=== PATIENT | female | born 1950 | race Caucasian/White ===

== ENCOUNTER 2020-03-03 07:05 | Outpatient (CLI) | payer MEDICARE, SELFPAY ==
--- NOTE | 2020-03-03 07:08 | ECG_ITS ---
NAME OF STUDY: LEXISCAN SESTAMIBI STRESS TEST INDICATION: [Exertional Chest Pain, NOTE: Please note that this is the electrocardiogram portion of the Lexiscan/Sestamibi stress test. The perfusion scan will be documented separately. DATA: Baseline heart rate was 72 beats per minute. Baseline blood pressure was 188/91 millimeters of mercury. Target heart rate was 153. Maximum heart rate achieved was 100. which was 65 % of the predicted target heart rate. Maximum blood pressure was 202/90 millimeters of mercury. The reason for ending the test was completion of the protocol. The patient did not experience any symptoms. ELECTROCARDIOGRAM: BASELINE: Sinus rhythm. Normal axis. Possible old anteroseptal myocardial infarction. EXERCISE: After Lexiscan injection, no ST-T changes suggestive of ischemic noted. No arrhythmia noted. CONCLUSION: Please note due to baseline abnormality of the EKG specificity and sensitivity of the EKG portion of LexiScan MIBI stress test will be low 1. EKG not suggestive of ischemia 2. Lexiscan injection unremarkable. 3. Perfusion scan will be documented separately. Electronically Signed On 03-03-2020 16:33:32 CDT by Pee Evans M.D. [id number]
--- NOTE | 2020-03-03 07:10 | NMCV_ITS ---
NM valentin perf SPECT r/s* [id number] Lakeshia Giles Age: 69 Gender: F : 1950 Exam Date: 03/03/2020 08:07 Ordering Phys: Derek Angel DO Technologist: ROSMERY Perkins Exam Location: [facility] Indications: Exertional chest pain STRESS TEST Please see separate stress test report in [facility] for full findings IMAGE PROTOCOL Rest/Stress 1 Lexiscan Day Radiopharmaceutical Dose (mCi) Administration Site Administered by Rest: Tc-99m 11.0 IV ROSMERY Johnson Sestamibi Stress:Tc-99m 33.0 IV ROSMERY Perkins Sestamiisrael Rest: 03-Mar-2020 60 Discovery 630 Stress: 03-Mar-2020 45 Discovery 630 0.4mg Lexiscan. Images obtained in supine and prone position. SPECT RESULTS Technical Quality: Good Raw Data Analysis: Breast attenuation Image Corrections: No attenuation or motion correction applied Summed Stress Score: 1 Summed Rest Score: 0 Summed Difference Score: 1 PERFUSION FINDINGS SPECT images demonstrate homogeneous tracer distribution throughout the myocardium. FUNCTIONAL RESULTS (calculated via Gated SPECT) Stress Image LV EF (%): 66 Stress EDV (mL):90 TID: 0.86 Stress ESV (mL):31 FUNCTIONAL FINDINGS: The left ventricle is normal in size. Transient Ischemia Dilatation of 0.86. There is normal left ventricular systolic function. The left ventricular ejection fraction is normal with a value of 66%. There is normal left ventricular wall thickening. Normal end-diastolic and end-systolic volumes. IMPRESSIONS 1. Myocardial perfusion imaging is normal. 2. Overall left ventricular systolic function is normal without regional wall motion abnormalities. 3. The left ventricular ejection fraction is normal with a value of 66%. 4. This study suggests a low likelihood of angiographically significant coronary artery disease. Becki Stroud MD (Electronically Signed) Final Date: 03 March 2020 12:37 S
--- NOTE | 2020-03-03 07:26 | PC.NURSE ---
STRESS TEST NOTE PATIENT COMES IN [place] AND STATES THAT SHE DOESN'T THINK SHE WILL BE ABLE TO WALK ON THE TREADMILL AND THAT SHE TOLD DR PRIDE THAT HER KNEES WOULD NOT ALLOW HER TO. SHE ALSO STATES THAT SHE HAD ASKED DR PRIDE FOR AN ORTHO REFERRAL TO GET BILAT KNEE REPLACEMENTS. NO ANSWER AT [facility] THIS AM. DR ANNA WAS NOTIFIED BY TELEPHONE OF THE ABOVE AND ORDERS WERE RECEIVED TO CHANGE THE TEST TO A LEXISCAN SESTAMIBI STRESS TEST IF THE PATIENT WAS AGREEABLE. THIS WAS EXPLAINED TO THE PATIENT IN FULL AND SHE WISHES TO PROCEED WITH THE CHEMICAL STRESS TEST.
[2020-03-03] MEDS: regadenoson 0.4 Mg/5 ml Syringe IVP (08:49)
[2020-03-03 09:15] VITALS: BP 188/86; PULSE 88
== END 2020-03-03 07:06 | disposition home or self-care (01) ==
LOC: RAD 07:07
PROVIDERS: Family Provider Internal Medicine; PCP Internal Medicine; Visit Provider Internal Medicine
DX: R07.9 Chest pain, unspecified (principal)
CPT/HCPCS: 78452; 93017; A9500; J2785

== ENCOUNTER → 2020-12-01 09:00 | Outpatient (BNVA) | payer MEDICARE, SELFPAY | PROVIDERS: Family Provider Internal Medicine; PCP Internal Medicine; Visit Provider Family Medicine | DX: Z20.822 Contact with and (suspected) exposure to COVID-19 (principal) | CPT/HCPCS: 87635 ==

== ENCOUNTER 2021-05-18 07:52 | Emergency (ER) | payer MEDICARE, SELFPAY ==
[2021-05-18] VITALS (7 sets, daily range): BP systolic 142–214; BP diastolic 65–89; PULSE 51–67; RESP 18–20; TEMP 36.2–37.1; O2SAT 96–100; BMI 41.5
--- NOTE | 2021-05-18 08:04 | ECG_ITS ---
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 Measurements Intervals [place] Rate: 57 P: -25 IN: 163 QRS: -3 QRSD: 97 T: 30 QT: 393 QTc: 383 Interpretive Statements SINUS BRADYCARDIA MODERATE VOLTAGE CRITERIA FOR LVH, CONSIDER NORMAL VARIANT [MEETS CRITERIA IN ONE OF: R(aVL), S(V1), R(V5), R(V5/V6)+S(V1)] Compared to ECG 03/07/2018 20:14:46 Sinus rhythm no longer present Electronically Signed On 05-19-2021 0:18:27 CDT by Luis Gonzalez M.D. [id number]
--- NOTE | 2021-05-18 08:05 | XRR_ITS ---
PROCEDURE INFORMATION: Exam: XR Chest Exam date and time: 05/18/2021 8:05 AM Age: 71 years old Clinical indication: Cough and dyspnea; Patient HX: No chest complaints per patient; Additional info: Dyspnea/cough TECHNIQUE: Imaging protocol: XR of the chest. Views: 1 view. COMPARISON: CR XR chest 2V* [id number] 02/19/2020 9:36 AM FINDINGS: Lungs: Unremarkable. No consolidation. Pleural spaces: Unremarkable. No pleural effusion. No pneumothorax. Heart/Mediastinum: Stable cardiomediastinal silhouette. Bones/joints: Unremarkable. XR/XR chest 1V portable [id number] IMPRESSION: No acute findings.
--- NOTE | 2021-05-18 08:16 | ED_ITS ---
HPI - General Adult General: Chief complaint: General Medical Stated complaint: High BP, pain in R side of face, Diarrhea Time Seen by Provider: 05/18/21 08:04 History of Present Illness: HPI narrative: 71-year-old female presents emergency room with elevated blood pressure. She has not had any recent change in her blood pressure medications. She has not changed dosages or run out of any of her medications says any chest pain or shortness of breath that the right-sided facial numbness/weakness. But no other symptoms not really had any weakness that we can evaluate now. Denies difficulty speech vision or swallowing Onset (ago): day(s) Location: face Radiation: non-radiation Severity: mild Relieving factors: none Exacerbating factors: none Associated symptoms: Deny chest pain, confusion, cough, diaphoresis, decreased appetite, dyspnea, fevers/chills, headache(s), malaise, nausea, rash, palpitations, seizures, short of breath, syncope, vomiting or weakness Treatments prior to arrival: none Review of Systems Const: Denies: malaise or diaphoresis ENMT: Denies: throat pain, ear or mastoid pain, nasal discharge or nasal congestion Card: Denies: chest pain, palpitations or syncope Resp: Denies: dyspnea GI: Denies: nausea or vomiting : Denies: flank pain, difficulty voiding, dysuria, urinary frequency or urinary urgency Skin/Breast: Denies: rash Neuro: Denies: headache(s) or confusion PFS ED PFSH: Social History Smoking and tobacco status: former smoker Quit status (tobacco): quit date established Second hand smoke exposure: No Smoking risk assessment/counseling performed?: No Physical Exam Const: COMMON NORMALS: no acute distress GENERAL APPEARANCE: cooperative and comfortable ORIENTATION/CONSCIOUSNESS: Yes awake, Yes oriented to person, Yes oriented to place and Yes oriented to time HENMT: COMMON NORMALS: normocephalic, atraumatic, hearing grossly normal bilaterally and external ears normal HEAD & SCALP: normocephalic and atraumatic EXTERNAL EAR: Yes external ears normal Neck/C-Spine: COMMON NORMALS: no JVD Resp: COMMON NORMALS: normal respiratory effort, No retractions, No use of accessory muscles and clear to auscultation bilaterally AUSCULTATION: clear to auscultation bilaterally Cardio: COMMON NORMALS: no JVD, regular rate, regular rhythm and No murmurs present (Cardio) RATE: regular rate RHYTHM: regular rhythm GI: COMMON NORMALS: Soft to palpation and No hepatosplenomegaly present AUSCULTATION: Yes normoactive bowel sounds PALPATION: Yes Soft to palpation, No Tenderness to palpation present (GI), No Guarding due to palpation present (GI) and Yes No hepatosplenomegaly present Extremity: COMMON NORMALS: normal to inspection, capillary refill normal, no clubbing, cyanosis or edema, no calf tenderness and no pedal edema Neuro: SENSORIUM/ORIENTATION: Yes oriented to person, Yes oriented to place and Yes oriented to time Skin: COMMON NORMALS: no rashes or lesions noted GENERAL SKIN EXAM: no rashes or lesions noted Course Vital Signs: Vital signs: Vital Signs Temperature 98.8 F 05/18/21 08:06 Pulse Rate 60 05/18/21 08:15 Respiratory Rate 18 05/18/21 08:15 Blood Pressure 188/89 05/18/21 08:15 Pulse Oximetry 97 05/18/21 08:06 Discharge Plan Discharge Prescriptions: No Action atenolol PO RF: 0 diltiazem HCl PO RF: 0 lisinopril PO RF: 0 Coding Level of Care Code ED Cloud Subject Matter Expert for Jennifer Esquivel NIH stroke score NIHSS Level Of Consciousness - 1a: 0 Level Of Consciousness Questions - 1b: Both Correct Level Of Consciousness Commands - 1c: Both Correct Best Gaze - 2: Normal Visual Ware - 3: No Visual Loss Facial Palsy - 4: Normal Motor Arm Right - 5: No Drift Motor Arm Left - 5: No Drift Motor Leg Right - 6: No Drift Motor Leg Left - 6: No Drift Limb Ataxia - 7: Absent Sensory - 8: Mild To Moderate Loss Best Language - 9: No Aphasia Dysarthia - 10: Normal Extinction And Inattention - 11: 0 Score Total Score: 1
--- NOTE | 2021-05-18 08:17 | CT_ITS ---
WS: [id number] CT HEAD TECHNIQUE: Noncontrast CT of the head obtained from the skullbase to the vertex. CLINICAL INFORMATION: Right-sided facial weakness COMPARISON: None. DLP: 895.[address] scans at [facility] use at least one of these dose optimization techniques: automat ed exposure control; mA and/or kV adjustment per patient size (includes targeted exams where dose is matched to clinical indication); or iterative reconstruction. FINDINGS: No evidence of intracranial hemorrhage or mass effect. Ventricular system and basal cisterns are gayle nt. Mild small vessel changes with mild parenchymal volume loss. Chronic lacunar infarct right caudat e. Tiny chronic lacunar infarcts anterior limb left internal capsule. No extra-axial fluid collection s. No evidence of mass or mass effect. Normal brand-white differentiation. Cavernous carotid calcifica tion. Paranasal sinuses and mastoid air cells are well aerated. .Normal visualized soft tissues. CT/CT head wo con* [id number] IMPRESSION: 1. No evidence of intracranial hemorrhage or mass effect. 2. Mild small vessel changes. Mild parenchymal volume loss. 3. Tiny chronic lacunar infarcts right greater than left caudate. 4. No acute intracranial findings. Notified Luis Daniel Schuster DO at 05/18/2021 9:13 AM.
--- NOTE | 2021-05-18 08:19 | PC.NURSE ---
Patient reports that she woke at 0230 with left sided numbness. Also reports dizziness at 0330. A&O x4 with no neuro deficits noted at this time. Denies any pain at this time.
[2021-05-18 08:47] LABS: Basophils # 0.1 10^3/uL (0.0-0.1); Basophils % 0.7 %; Eosinophils # 0.2 10^3/uL (0.0-0.8); Eosinophils % 1.9 %; Hematocrit 41.1 % (37.0-47.0); Lymphocytes # 1.7 10^3/uL (0.8-4.8); Lymphocytes % 19.3 %; Mean Corpuscular HGB Conc 31.6 g/dL (30.0-36.0); Mean Corpuscular Hemoglobin 28.8 pg (28.0-34.0); Mean Corpuscular Volume 91.1 fL (81-99); Mean Platelet Volume 9.3 fL (7.4-10.4); Monocytes # 0.5 10^3/uL (0.2-0.9); Monocytes % 5.8 %; Neutrophils # 6.22 10^3/uL (1.8-7.7); Nucleated Red Blood Cells % 0 %; Platelet Count 335 10^3/cmm (130-400); Red Blood Count 4.51 10^6/uL (4.1-5.3); Red Cell Distribution Width 13.2 % (12.1-15.1); White Blood Count 8.6 10^3/uL (4.0-10.0)
[2021-05-18 09:05] LABS: Add Urine Microscopic? NO; Charge for UA Resulting for Rev
[2021-05-18 09:06] LABS: Alanine Aminotransferase 11 U/L (0-33); Alkaline Phosphatase 97 IU/L (35-105); Anion Gap 15.2 (5-19); Aspartate Amino Transferase 14 U/L (0-32); Blood Urea Nitrogen 8 mg/dL (8-23); Carbon Dioxide 26 mmol/L (22-29); Chloride 102 mmol/L (98-107); Creatine Phosphokinase 60 U/L (26-192); Globulin 2.9 g/dL (1.3-4.6); Glomerular Filtration Rate 122.3 mL/min (90-130); Glucose 140 mg/dL (65-115); Osmolality Calculated 289 mOsm/kg (285-295); Potassium 4.2 mmol/L (3.5-5.1); Sodium 139 mmol/L (136-145); Total Bilirubin 0.4 mg/dL (0.15-1.2); Total Protein 6.9 g/dL (6.6-8.7)
[2021-05-18 09:20] LABS: Bilirubin Urine Neg (Negative); Blood Urine Neg (Negative); Glucose Urine UA Norm (Normal); Ketones Urine Negative (Negative); Leukocyte Esterase Urine Negative (Negative); Nitrate Urine Negative (Negative); Protein Urine Neg (Negative); Specific Gravity, Urine 1.005 (1.005-1.030); Urine Appearance Clear (CLEAR); Urine Color Yellow (Yellow); Urobilinogen Urine Norm (Negative); pH Urine 7 (5-7)
--- NOTE | 2021-05-18 09:40 | PC.NURSE ---
Patient taking home blood pressure medication at this time. Lisinopril, diltiazem, and atenolol.
== END 2021-05-18 11:09 | disposition home or self-care (01) ==
PROVIDERS: Emergency Provider Family Medicine; PCP Internal Medicine
DX: I10 Essential (primary) hypertension (principal); Z87.891 Personal history of nicotine dependence
CPT/HCPCS: 36415; 70450; 71045; 80053; 81003; 82550; 85025; 93005; 99284

== ENCOUNTER 2021-05-27 20:00 | Outpatient (CLI) | payer MEDICARE, SELFPAY | END 2021-05-27 20:01 | disposition home or self-care (01) | LOC: SLEEP 05-28 08:47 | PROVIDERS: PCP Internal Medicine; Visit Provider Internal Medicine | DX: G47.10 Hypersomnia, unspecified (principal); R06.83 Snoring; R53.83 Other fatigue; G47.33 Obstructive sleep apnea (adult) (pediatric) | CPT/HCPCS: 95810 ==

== ENCOUNTER 2021-12-14 13:48 | Outpatient (CLI) | payer MEDICARE, SELFPAY ==
--- NOTE | 2021-12-14 14:00 | USCV_ITS ---
Lakeshia Giles Age: 71 Gender: F : 1950 Exam Date: 12/14/2021 14:37 Ordering Phys: Socorro Sinha INSURANCE PROFESSIONAL INSURANCE PROFESSIONAL Technologist: SAMRA [place] [facility] [facility] Indication: Essential hypertension BP: 182 / 82 HR: 74 Rhythm: Sinus Technical Quality: Adequate MEASUREMENTS (Male / Female) Normal Values 2D ECHO LV Diastolic Diameter PLAX 3.3 cm 4.2 - 5.9 / 3.9 - 5.3 cm LV Systolic Diameter PLAX 2.1 cm IVS Diastolic Thickness 1.3 cm 0.6 - 1.0 / 0.6 - 0.9 cm IVS Systolic Thickness 1.6 cm LVPW Diastolic Thickness 1.6 cm 0.6 - 1.0 / 0.6 - 0.9 cm LVPW Systolic Thickness 1.3 cm LVOT Diameter 2.0 cm LV Ejection Fraction 2D Teich 65.5 % LV Ejection Fraction MOD 2C 70.9 % LV Ejection Fraction 2C AL 74.8 % LA Diameter 3.1 cm LA Width 3.1 cm LA Height 4.8 cm RA Width 3.4 cm RA Height 4.5 cm Aorta at Sinotubular Diameter 2.5 cm M-MODE Aortic Annulus Diameter 3.3 cm LA Ao Ratio MM 0.9 MV E Point Septal Separation 0.6 cm DOPPLER AV Peak Velocity 221.0 cm/s LVOT Peak Velocity 136.0 cm/s AV Area Cont Eq vti 2.0 cm squared AV Area Cont Eq pk 2.0 cm squared MV Area PHT 3.3 cm squared Mitral E to A Ratio 0.7 MV E' Velocity 47.0 cm/s Mitral E to MV E' Ratio 7.0 Mitral E to LV E' Lateral Ratio 5.8 Mitral E to LV E' Septal Ratio 9.1 FINDINGS Left Ventricle Normal left ventricular size, systolic function and wall thickness, with no regional wall motion abnormalities. Left ventricular ejection fraction is estimated at 70 %. Grade I diastolic dysfunction (abnormal relaxation filling pattern), normal to mildly elevated filling pressures. Right Ventricle Normal right ventricular size and systolic function. RVSP could not be calculated due to incomplete tricuspid regurgitation velocity profile. Right Atrium Normal right atrial size. Left Atrium Mildly increased left atrial size. Mitral Valve Mild to moderate mitral annular calcification. No mitral valve stenosis. Trace mitral valve regurgitation. Aortic Valve Probably trileaflet aortic valve. No aortic valve stenosis. No aortic valve regurgitation. Tricuspid Valve Structurally normal tricuspid valve. Trace tricuspid valve regurgitation. Pulmonic Valve Structurally normal pulmonic valve. No pulmonary valve stenosis. No pulmonary valve regurgitation. Pericardium No pericardial effusion. Aorta Normal size aortic root and proximal ascending aorta. CONCLUSIONS 1. Normal left ventricular size, systolic function and wall thickness, with no regional wall motion abnormalities. Left ventricular ejection fraction is estimated at 70 %. Grade I diastolic dysfunction (abnormal relaxation filling pattern), normal to mildly elevated filling pressures. 2. Normal right ventricular size and systolic function. 3. No significant change when compared to previous study dated 07/11/2013. Becki Stroud MD (Electronically Signed) Final Date: 17 December 2021 23:00 S
== END 2021-12-14 13:49 | disposition home or self-care (01) ==
LOC: RAD 13:55
PROVIDERS: PCP Internal Medicine; Visit Provider Nurse Practitioner Family
DX: I10 Essential (primary) hypertension (principal)
CPT/HCPCS: 93306

== ENCOUNTER 2022-06-27 08:57 | Outpatient (CLI) | payer MEDICARE, SELFPAY ==
--- NOTE | 2022-06-27 09:12 | MM_ITS ---
WS: [id number] SCREENING DIGITAL BREAST TOMOSYNTHESIS MAMMOGRAM WITH CAD HISTORY: SCREENING COMPARISON: 02/04/2014 Bilateral CC and MLO with tomosynthesis and synthetic mammography submitted. Computer aided detection analyzed. Breast composition: There are scattered areas of fibroglandular density. There are clustered calcific ations in the anterior RIGHT breast near 9:00. Additional bilateral extensive vascular calcifications . Stable asymmetries within each breast since 2013. MM/[place] [id number] IMPRESSION: BI-RADS: 0-Incomplete: Need additional imaging evaluation FOLLOW UP: Need Additional Imaging RIGHT BREAST: Magnification views of suspicious calcification CC and MLO. True ML.
== END 2022-06-27 08:58 | disposition home or self-care (01) ==
LOC: RAD 08:58
PROVIDERS: PCP Internal Medicine; Visit Provider Internal Medicine
DX: Z12.31 Encounter for screening mammogram for malignant neoplasm of breast (principal)
CPT/HCPCS: 77063; 77067

== ENCOUNTER → 2022-06-28 10:30 | Outpatient (BNVA) | payer MEDICARE, SELFPAY | PROVIDERS: PCP Internal Medicine; Visit Provider Internal Medicine Cardiovascular Disease | DX: I10 Essential (primary) hypertension (principal); G47.33 Obstructive sleep apnea (adult) (pediatric); Z87.891 Personal history of nicotine dependence | CPT/HCPCS: 99213; 99214 ==

== ENCOUNTER 2022-07-20 08:34 | Outpatient (CLI) | payer MEDICARE, SELFPAY ==
--- NOTE | 2022-07-20 08:42 | MM_ITS ---
WS: [id number] ADDITIONAL VIEW RIGHT DIGITAL TOMOSYNTHESIS MAMMOGRAPHY WITH CAD. HISTORY: INCONCLUSIVE MAMMOGRAM COMPARISON: 06/27/2022, 02/04/2014 Technique: ML views. Magnification views RIGHT CC and MLO. Breast composition: There are scattered areas of fibroglandular density. Calcifications are reidenti fied and 9:00 in the middle depth. There are only a few calcifications which are well circumscribed. No spiculation. On the CC projection there are additional superimposed vascular calcifications contri buting to the grouping of calcifications. Ovoid soft tissue nodule central to the nipple and just inf erior to the nipple is stable since 2013. MM/[place] [id number] IMPRESSION: BI-RADS: 3-Probably Benign FOLLOW UP: 6 Month Follow-up Recommend additional magnification views RIGHT breast calcifications in 6 month s. Long-term stability with documentation necessary.
== END 2022-07-20 08:35 | disposition home or self-care (01) ==
PROVIDERS: PCP Internal Medicine; Visit Provider Internal Medicine
DX: R92.2 Inconclusive mammogram (principal); R92.1 Mammographic calcification found on diagnostic imaging of breast
CPT/HCPCS: 77061

== ENCOUNTER 2022-12-08 02:58 | Emergency (ER) | payer MEDICARE, SELFPAY ==
[2022-12-08 02:59] VITALS: BP 206/102; PULSE 101; RESP 12; TEMP 36.4; O2SAT 98; BMI 40.6
--- NOTE | 2022-12-08 02:59 | ECG_ITS ---
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 Measurements Intervals [place] Rate: 89 P: 270 IL: 160 QRS: -13 QRSD: 89 T: 41 QT: 348 QTc: 424 Interpretive Statements SINUS RHYTHM LOW QRS VOLTAGE IN PRECORDIAL LEADS [QRS DEFLECTION < 1.0 mV IN CHEST LEADS] VOLTAGE CRITERIA FOR LVH [MEETS CRITERIA IN ONE OF: R(aVL), S(V1), R(V5), R(V5/V6)+S(V1)] Compared to ECG 05/18/2021 08:15:58 Low QRS voltage now present Electronically Signed On 12-08-2022 14:45:05 MANAGER RESIDENTIAL by Javier Dickens M.D. [id number]
--- NOTE | 2022-12-08 02:59 | XRR_ITS ---
PROCEDURE INFORMATION: Exam: XR Chest Exam date and time: 12/08/2022 3:24 AM Age: 72 years old Clinical indication: Sternal or substernal pain; Patient HX: C/O substernal chest pain. History of heart murmer. ; Additional info: Cp TECHNIQUE: Imaging protocol: Radiologic exam of the chest. Views: 1 view. COMPARISON: CR XR chest 1V portable [id number] 18/05/2021 08:44 FINDINGS: Lungs: Increasing areas of left lung base hazy opacity and right midlung hazy opacity. Pleural spaces: No pneumothorax or effusion. Heart/Mediastinum: The heart is mildly enlarged. Diffuse vascular calcification. Bones/joints: Unremarkable. XR/XR chest 1V portable [id number] IMPRESSION: 1. Increasing areas of bilateral hazy atelectasis, scarring, or pneumonitis from 05/18/2021. Recommend 1-2 month follow-up. 2. The heart remains enlarged. There is perhaps slight venous prominence.
--- NOTE | 2022-12-08 03:13 | ED_ITS ---
HPI - Chest Pain General: Chief Complaint: Chest Pain Stated Complaint: Chest Pain Time Seen by Provider: 12/08/22 03:06 Source: patient Mode of arrival: ambulatory Limitations: no limitations History of Present Illness: 72-year-old female states she been having chest pain since 9 PM last night states been a pressure type pain in her chest has been constant nature states she has been feeling little anxious since having the pain as well. Denies any shortness of breath denies any nausea denies diapho resis denies any worsening improving factors. Associated symptoms: Deny abdominal pain, dyspnea, fever(s), nausea or vomiting Review of Systems Const: Denies: fever(s), chills, body aches or change in appetite Eyes: Denies: blurry vision or eye discomfort ENMT: Denies: throat pain or dental pain Card: Reports: chest pain Resp: Denies: dyspnea GI: Denies: abdominal pain, nausea, vomiting or diarrhea : Denies: dysuria Musc: Denies: neck pain or back pain Skin/Breast: Denies: rash Neuro: Denies: headache(s) Psych: Denies: depression Mingo/Lymph: Denies: easy bruising All/Imm: Denies: urticaria PFSH ED PFSH: Medical History Asthma Former smoker, stopped smoking many years ago Obesity DANIEL (obstructive sleep apnea) Social History Smoking and tobacco status: former smoker Quit status (tobacco): quit date established Second hand smoke exposure: No Smoking risk assessment/counseling performed?: No Physical Exam Const: COMMON NORMALS: no acute distress, patient oriented x3 and healthy appearing HENMT: COMMON NORMALS: normocephalic and atraumatic HEAD & SCALP: normocephalic and atraumatic Eye: COMMON NORMALS: Equal, round and reactive pupils present and EOMs intact bilaterally PUPIL: Yes Equal, round and reactive pupils present Neck/C-Spine: COMMON NORMALS: full ROM and supple Chest: COMMONS NORMALS: normal inspection of the chest and normal palpation of entire chest wall Resp: COMMON NORMALS: normal respiratory effort, No retractions, No use of accessory muscles and clear to auscultation bilaterally AUSCULTATION: clear to auscultation bilaterally Cardio: COMMON NORMALS: regular rate, regular rhythm and No murmurs present (Cardio) RATE: regular rate RHYTHM: regular rhythm GI: COMMON NORMALS: Normal to inspection, nondistended, normoactive bowel sounds present, Soft to palpation, non-tender and no masses PALPATION: Yes Soft to palpation Extremity: COMMON NORMALS: normal to inspection and full ROM Neuro: COMMON NORMALS: patient oriented x3, moves all extremities and no focal motor deficits Psych: COMMON NORMALS: mental status grossly normal, Normal thought process present and cooperative THOUGHT PROCESS: Normal thought process present Skin: COMMON NORMALS: no rashes or lesions noted and no wounds GENERAL SKIN EXAM: no rashes or lesions noted Course Vital Signs: Vital signs: Vital Signs Temperature 97.5 F L 12/08/22 02:59 Pulse Rate 101 H 12/08/22 02:59 Respiratory Rate 12 12/08/22 02:59 Blood Pressure 206/102 12/08/22 02:59 Pulse Oximetry 98 12/08/22 02:59 Oxygen Delivery Me thod 12/08/22 02:59 MDM - Chest Pain Medical Decision Making Patient presents here with chest pain its resolved here currently her initial repeat troponin are normal her EKGs are normal as well has no signs of acute coronary syndrome she has no signs of aortic dissection or pulmonary embolism she is stable for discharge at this time she is to follow-up with her acute care physician in 3 to 5 days she is to return if worsening she understands agrees to plan. Lab Data 12/08/22 03:25 12/08/22 03:25 Radiology Impressions Chest X-Ray 12/08/22 02:59 IMPRESSION: 1. Increasing areas of bilateral hazy atelectasis, scarring, or pneumonitis from 05/18/2021. Recommend 1-2 month follow-up. 2. The heart remains enlarged. There is perhaps slight venous prominence. Laboratory Results WBC 9.6 10^3/uL (4.0-10.0) 12/08/22 03:25 RBC 4.70 10^6/uL (4.1-5.3) 12/08/22 03:25 Hgb 13.6 g/dL (11.5-15.3) 12/08/22 03:25 Hct 43.3 % (37.0-47.0) 12/08/22 03:25 MCV 92.1 fl (81-99) 12/08/22 03:25 MCH 28.9 pg (28.0-34.0) 12/08/22 03:25 MCHC 31.4 g/dL (30.0-36.0) 12/08/22 03:25 RDW 13.5 % (12.1-15.1) 12/08/22 03:25 Plt Count 360 10^3/cmm (130-400) 12/08/22 03:25 MPV 9.2 fL (7.4-10.4) 12/08/22 03:25 Neut % (Auto) 74.2 % 12/08/22 03:25 Lymph % (Auto) 16.9 % 12/08/22 03:25 [place] % (Auto) 5.7 % 12/08/22 03:25 Eos % (Auto) 2.3 % 12/08/22 03:25 Baso % (Auto) 0.6 % 12/08/22 03:25 Neut # (Auto) 7.09 10^3/uL (1.8-7.7) 12/08/22 03:25 Lymph # (Auto) 1.6 10^3/uL (0.8-4.8) 12/08/22 03:25 [place] # (Auto) 0.5 10^3/uL (0.2-0.9) 12/08/22 03:25 Eos # (Auto) 0.2 10^3/uL (0.0-0.8) 12/08/22 03:25 Baso # (Auto) 0.1 10^3/uL (0.0-0.1) 12/08/22 03:25 Nucleated RBC % (auto) 0 % 12/08/22 03:25 Nucleated RBCs # 0.0 /100WBC 12/08/22 03:25 PT 12.30 SECONDS (12.1-14.9) 12/08/22 03:25 INR 0.88 (0.8-1.2) 12/08/22 03:25 Sodium 138 mmol/L (136-145) 12/08/22 03:25 Potassium 4.1 mmol/L (3.5-5.1) 12/08/22 03:25 Chloride 102 mmol/L (98-107) 12/08/22 03:25 Carbon Dioxide 23 mmol/L (22-29) 12/08/22 03:25 Anion Gap 17.1 (5-19) 12/08/22 03:25 BUN 14 mg/dL (8-23) 12/08/22 03:25 Creatinine 0.6 mg/dL (0.5-0.9) 12/08/22 03:25 GFR Calculation 98.8 mL/min (90-130) 12/08/22 03:25 Glucose 158 mg/dL (65-115) H 12/08/22 03:25 Calculated Osmolality 290 mOsm/kg (285-295) 12/08/22 03:25 Calcium 9.9 mg/dL (8.5-10.5) 12/08/22 03:25 Total Bilirubin 0.2 mg/dL (0.15-1.2) 12/08/22 03:25 AST 14 U/L (0-32) 12/08/22 03:25 ALT 12 U/L (0-33) 12/08/22 03:25 Alkaline Phosphatase 141 U/L (35-105) H 12/08/22 03:25 Troponin T Baseline 7 ng/L (0-10) 12/08/22 03:25 Troponin T 120 Minute 6.35 ng/L (0-10) 12/08/22 04:53 Total Protein 7.8 g/dL (6.6-8.7) 12/08/22 03:25 Albumin 4.5 g/dL (3.5-5.2) 12/08/22 03:25 Globulin 3.3 g/dL (1.3-4.6) 12/08/22 03:25 Lipase 17 U/L (13-60) 12/08/22 04:53 EKG Data EKG 1: I personally reviewed and interpreted this EKG as follows: EKG interpretation date: 12/08/22 EKG interpretation time: 04:54 Interpretation: nsr hr [address] or t wave abnormalities qrs 84 qtc 400 Discharge Plan Discharge Patient Disposition: Home Clinical Impression: Chest pain Condition: Stable Prescriptions: New Protonix 40 mg tablet,delayed release (DR/EC) 40 mg PO DAILY Qty: 60 0RF No Action aspirin 81 mg tablet,delayed release (DR/EC) 325 mg PO DAILY diltiazem HCl 180 mg capsule,ext.rel 24h degradable 180 mg PO BID Qty: 180 2RF clonidine HCl 0.1 mg tablet 0.1 mg PO BID PRN (Reason: Blood Pressure) Qty: 60 2RF Rx Instructions: Use if BP > 160/90 mm Hg Discharge Orders: Discharge ED (Routine); Ordered 12/08/22 Ordered By: Christoph Engel Referrals: Becki Stroud MD [Physician] - 1-3 days Derek Angel DO [Primary Care Provider] - Discharge Diet: Advance as tolerated Discharge Activity: Resume usual activity Patient Instructions: Chest Pain (ED) Coding Level of Care Code ED Precision Optics Technician for Chg Fwd Exam Comprehensive
[2022-12-08 03:32] LABS: Basophils # 0.1 10^3/uL (0.0-0.1); Basophils % 0.6 %; Eosinophils # 0.2 10^3/uL (0.0-0.8); Eosinophils % 2.3 %; Hematocrit 43.3 % (37.0-47.0); Hemoglobin 13.6 g/dL (11.5-15.3); Lymphocytes # 1.6 10^3/uL (0.8-4.8); Lymphocytes % 16.9 %; Mean Corpuscular HGB Conc 31.4 g/dL (30.0-36.0); Mean Corpuscular Hemoglobin 28.9 pg (28.0-34.0); Mean Corpuscular Volume 92.1 fl (81-99); Mean Platelet Volume 9.2 fL (7.4-10.4); Monocytes # 0.5 10^3/uL (0.2-0.9); Monocytes % 5.7 %; Neutrophils # 7.09 10^3/uL (1.8-7.7); Neutrophils % 74.2 %; Nucleated Red Blood Cells % 0 %; Platelet Count 360 10^3/cmm (130-400); Red Cell Distribution Width 13.5 % (12.1-15.1); White Blood Count 9.6 10^3/uL (4.0-10.0)
[2022-12-08] MEDS: nitroglycerin 0.4 mg sublingual Tablet SUBLINGUAL (03:33)
[2022-12-08 03:43] LABS: INR 0.88 (0.8-1.2)
[2022-12-08 03:52] LABS: Alanine Aminotransferase 12 U/L (0-33); Albumin Level 4.5 g/dL (3.5-5.2); Alkaline Phosphatase 141 U/L (35-105); Anion Gap 17.1 (5-19); Aspartate Amino Transferase 14 U/L (0-32); Blood Urea Nitrogen 14 mg/dL (8-23); Calcium 9.9 mg/dL (8.5-10.5); Carbon Dioxide 23 mmol/L (22-29); Chloride 102 mmol/L (98-107); Globulin 3.3 g/dL (1.3-4.6); Glomerular Filtration Rate 98.8 mL/min (90-130); Glucose 158 mg/dL (65-115); Osmolality Calculated 290 mOsm/kg (285-295); Potassium 4.1 mmol/L (3.5-5.1); Sodium 138 mmol/L (136-145); Total Bilirubin 0.2 mg/dL (0.15-1.2); Total Protein 7.8 g/dL (6.6-8.7)
[2022-12-08] MEDS: hyDRALAzine 20 mg/mL INJ 1 mL 10 MG IVP (03:52)
[2022-12-08 03:53] LABS: Troponin(5th) Baseline 7 ng/L (0-10)
[2022-12-08 04:00] VITALS: BP 180/83; PULSE 85; RESP 18; O2SAT 99
[2022-12-08] MEDS: ondansetron 2 mg/ML SDV 2 mL 4 MG IVP ×2 (04:03→05:12)
[2022-12-08] MEDS: ketorolac 30 mg/mL INJ 15 MG IVP (04:45)
--- NOTE | 2022-12-08 04:54 | ECG_ITS ---
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 Measurements Intervals Call Rate: 66 P: 48 SD: 227 QRS: -14 QRSD: 84 T: 29 QT: 387 QTc: 405 Interpretive Statements SINUS RHYTHM WITH FIRST DEGREE AV BLOCK LOW QRS VOLTAGE IN PRECORDIAL LEADS [QRS DEFLECTION < 1.0 mV IN CHEST LEADS] MODERATE VOLTAGE CRITERIA FOR LVH, CONSIDER NORMAL VARIANT [MEETS CRITERIA IN ONE OF: R(aVL), S(V1), R(V5), R(V5/V6)+S(V1)] POSSIBLE ANTERIOR MYOCARDIAL INFARCTION , PROBABLY OLD [30 ms Q WAVE IN V3/V4, OR R < 0.2 mV IN V4] Compared to ECG 12/08/2022 03:16:05 First degree AV block now present Myocardial infarct finding now present Ectopic atrial rhythm no longer present Electronically Signed On 12-08-2022 14:50:28 ASPHALT DAUBER by Javier Dickens M.D. [id number]
[2022-12-08 05:05] VITALS: BP 149/73; PULSE 73; RESP 18; O2SAT 94
[2022-12-08] MEDS: lidocaine 2% viscous 15 ML, aluminum-mag hydrox-simethicon 30 ML, sucralfate oral liq 1 GM PO (05:12)
[2022-12-08 05:19] LABS: Lipase 17 U/L (13-60)
[2022-12-08 05:23] LABS: Troponin 5 2HR 6.35 ng/L (0-10)
[2022-12-08 06:55] LABS: Troponin 5 2HR Delta -0.65 ABS# (0-10)
--- NOTE | 2022-12-08 10:05 | DCPLANNER ---
Addendum entered by Adela Laws 12/23/22 13:33: Patient had a follow up appointment scheduled at [facility] - patient did attend appointment. Addendum entered by Adela Laws 12/08/22 15:34: Patient has a follow up appointment scheduled for Tuesday, December 13, 2022 at 10:00 with Marjan Tillman at [facility]. Clinic will call patient with appointment information. Original Note: research and development manager had message to schedule a follow up appointment for patient with cardiology. research and development manager sent patients information to the front office staff at [facility]. Patients information will be printed and reviewed. Clinic will call patient with appointment information.
== END 2022-12-08 06:08 | disposition home or self-care (01) ==
PROVIDERS: Emergency Provider Emergency Medicine; PCP Internal Medicine
DX: R07.9 Chest pain, unspecified (principal); Z79.82 Long term (current) use of aspirin; Z87.891 Personal history of nicotine dependence
CPT/HCPCS: 71045; 80053; 83690; 84484; 85025; 85610; 93005; 96374; 96375; 96376; 99285; J0360; J1885; J2405

== ENCOUNTER → 2022-12-13 09:51 | Outpatient (BNVA) | payer MEDICARE, SELFPAY | PROVIDERS: PCP Internal Medicine; Visit Provider Nurse Practitioner Family | DX: R07.9 Chest pain, unspecified (principal); I10 Essential (primary) hypertension; Z87.891 Personal history of nicotine dependence | CPT/HCPCS: 99214 ==

== ENCOUNTER → 2023-01-17 08:39 | Outpatient (BNVA) | payer MEDICARE, SELFPAY | PROVIDERS: PCP Internal Medicine; Visit Provider Nurse Practitioner Family | DX: I10 Essential (primary) hypertension (principal); Z87.891 Personal history of nicotine dependence; Z79.82 Long term (current) use of aspirin | CPT/HCPCS: 99213 ==

== ENCOUNTER 2023-02-06 12:53 | Outpatient (CLI) | payer MEDICARE, SELFPAY ==
--- NOTE | 2023-02-06 13:11 | MM_ITS ---
WS: [id number] Right breast diagnostic 3D tomosynthesis digital mammogram, 02/06/2023 Clinical Data: 6[facility] CALCS Comparison: 07/20/2022, 06/27/2022, 02/04/2014, 02/26/2009, 01/20/2009, 01/10/2007. Findings: The small calcifications in the midportion of the right breast at the 9:00 position have not changed in size or number. Most likely these calcifications represent a small degenerating fibroadenoma. Ther e are vascular calcifications present. The parenchymal pattern shows fibroglandular tissue. MM/[place] [id number] Impression: 1. Unchanging small calcifications in central portion right breast. 2. Recommend return to annual screening mammograms. BIRADS: 2-Benign FOLLOW UP: 1 Year Follow-up The CAD title checker was used.
== END 2023-02-06 12:54 | disposition home or self-care (01) ==
LOC: RAD 12:58
PROVIDERS: PCP Internal Medicine; Visit Provider Internal Medicine
DX: R92.8 Other abnormal and inconclusive findings on diagnostic imaging of breast (principal); R92.1 Mammographic calcification found on diagnostic imaging of breast
CPT/HCPCS: 77061; G0279

== ENCOUNTER 2023-05-23 07:31 | Emergency (ER) | payer MEDICARE, SELFPAY ==
[2023-05-23 07:38] VITALS: BP 252/106; PULSE 83; RESP 16; TEMP 36.8; O2SAT 96; BMI 43.9
--- NOTE | 2023-05-23 07:39 | W.ED.EXTPRO ---
HPI - Extremity Problem General: Chief complaint: Extremity Problem,Nontraumatic Stated complaint: rt arm pain/numbness Time Seen by Provider: 05/23/23 07:36 Source: patient Mode of arrival: ambulatory History of Present Illness: 73-year-old female presents emergency room complaining of right arm and shoulder pain. She had a fall years ago intermittently had pain in that arm no recent trauma. Symptoms have come and gone over time its gotten worse lately she had difficult time with function but she has difficult time raising the arm. No other injuries or complaints at this time. Blood pressure is markedly elevated when she first arrived she took a clonidine 0.1 mg that she had at home shortly after arrival. MD Complaint: joint pain Pain Consistency: intermittent Location: right Quality: sharp Radiation: none Associated symptoms: Deny chest pain, fever(s) or rash Review of Systems Const: Denies: fever(s) ENMT: Denies: throat pain, ear or mastoid pain, nasal discharge or nasal congestion Card: Denies: chest pain, edema, dyspnea on exertion or orthopnea Resp: Denies: dyspnea, productive cough or non-productive cough GI: Denies: abdominal pain, nausea, vomiting, hematemesis, coffee ground emesis, diarrhea, constipation, bloating, hematochezia or melena : Denies: flank pain, difficulty voiding, dysuria, urinary frequency or urinary urgency Skin/Breast: Denies: rash or pruritus PFSH ED PFSH: Medical History Asthma Former smoker, stopped smoking many years ago Hypertension Obesity DANIEL (obstructive sleep apnea) Social History Smoking and tobacco status: former smoker Quit status (tobacco): quit date established Second hand smoke exposure: No Smoking risk assessment/counseling performed?: No Physical Exam Const: GENERAL APPEARANCE: cooperative and comfortable ORIENTATION/CONSCIOUSNESS: Yes awake, Yes oriented to person, Yes oriented to place and Yes oriented to time HENMT: COMMON NORMALS: normocephalic, atraumatic and hearing grossly normal bilaterally HEAD & SCALP: normocephalic and atraumatic Resp: COMMON NORMALS: normal respiratory effort, No retractions, No use of accessory muscles and clear to auscultation bilaterally AUSCULTATION: clear to auscultation bilaterally Cardio: COMMON NORMALS: regular rate, regular rhythm and No murmurs present (Cardio) RATE: regular rate RHYTHM: regular rhythm GI: COMMON NORMALS: Soft to palpation and No hepatosplenomegaly present AUSCULTATION: Yes normoactive bowel sounds PALPATION: Yes Soft to palpation, No Tenderness to palpation present (GI), No Guarding due to palpation present (GI) and Yes No hepatosplenomegaly present Extremity: COMMON NORMALS: capillary refill normal, no clubbing, cyanosis or edema, no calf tenderness and no pedal edema OTHER: Right arm neurovascular intact. Limited range of motion positive impingement signs no pain with palpation over the bicipital groove. Neuro: SENSORIUM/ORIENTATION: Yes oriented to person, Yes oriented to place and Yes oriented to time OTHER: Cranial nerves II to XII intact no focal logic deficits are noted facial muscles symmetrical. Normal function and strength in all extremities. Skin: COMMON NORMALS: no rashes or lesions noted GENERAL SKIN EXAM: no rashes or lesions noted Course Vital Signs: Vital signs: Vital Signs Temperature 98.3 F 05/23/23 07:38 Pulse Rate 74 05/23/23 10:51 Respiratory Rate 16 05/23/23 10:51 Blood Pressure 186/85 05/23/23 10:51 Pulse Oximetry 96 05/23/23 10:51 Oxygen Delivery Me thod Room Air 05/23/23 09:05 MDM - Extremity (Nontraumatic) Medical Decision Making X-ray unremarkable. No signs of neurologic deficits suggestive of stroke at this time. Started on anti-inflammatory. We also did treat her blood pressure given hydralazine blood pressure improved with hydralazine she was given the clonidine she taken on her own encouraged her to follow-up with her doctor for blood pressure control and will refer to Ortho for her shoulder Medical Records I reviewed the patient's medical records. Lab Data I reviewed the patient's lab results. Radiology Impressions Shoulder X-Ray 05/23/23 07:59 IMPRESSION: No acute osseous pathology. Discharge Plan Discharge Patient Disposition: Home Clinical Impression: Right rotator cuff tendonitis, HTN (hypertension) Condition: Stable Prescriptions: New diclofenac sodium 75 mg tablet,delayed release (DR/EC) 75 mg PO Q12H PRN (Reason: pain) Qty: 20 0RF No Action aspirin 81 mg tablet,delayed release (DR/EC) 325 mg PO DAILY clonidine HCl 0.1 mg tablet 0.1 mg PO BID PRN (Reason: Blood Pressure) Qty: 60 2RF Rx Instructions: Use if BP > 160/90 mm Hg magnesium 200 mg tablet 200 mg PO DAILY biotin 10 mg tablet 10 mg PO DAILY metoprolol succinate 25 mg tablet extended release 24 hr 25 mg PO DAILY Qty: 90 2RF Rx Instructions: may cut in half if BP is low or dizziness diltiazem HCl 180 mg capsule,ext.rel 24h degradable 180 mg PO BID Qty: 180 2RF Protonix 40 mg tablet,delayed release (DR/EC) 40 mg PO DAILY Qty: 60 0RF Discharge Orders: Discharge ED (Routine); Ordered 05/23/23 Ordered By: Luis Daniel Schuster Referrals: Derek Angel DO [Primary Care Provider] - Discharge Diet: Usual diet Discharge Activity: Increase activity as tolerated Patient Instructions: Opioid Safety, Pain Management Activity Restrictions/Additional Instructions: Use of the right arm as tolerated recommend do not use above shoulder level or use lift any heavy objects greater than 5 to 8 pounds. Diclofenac as needed for discomfort Case management make arrangements for follow-up with orthopedics Coding Level of Care Code ED Supervisor [employer] for Jennifer Esquivel
[2023-05-23 07:43] VITALS: BP 238/92; PULSE 72; RESP 18; O2SAT 95
[2023-05-23 07:58] VITALS: PULSE 70
--- NOTE | 2023-05-23 07:59 | XRR_ITS ---
PROCEDURE INFORMATION: Exam: XR Right Shoulder Exam date and time: 05/23/2023 8:02 AM Age: 73 years old Clinical indication: Pain; Shoulder; Right TECHNIQUE: Imaging protocol: Radiologic exam of the right shoulder. Views: 2 or more views. Total images: 2 COMPARISON: CR (CHEST, ) 12/08/2022 3:24 AM FINDINGS: Bones/joints: Mild AC joint space narrowing and minimal osteophyte formation. Moderate marginal osteophytes are noted. No acute fracture nor subluxation. No osseous erosion nor periosteal reaction. Soft tissues: Normal. XR/XR shoulder RT min 2V* [id number] IMPRESSION: No acute osseous pathology.
[2023-05-23] MEDS: hyDRALAzine 20 mg/mL INJ 1 mL IVP (08:26)
[2023-05-23] MEDS: ketorolac 30 mg/mL INJ IVP (08:26)
[2023-05-23 09:05] VITALS: BP 186/85; PULSE 74; RESP 16; O2SAT 96
--- NOTE | 2023-05-23 10:22 | DCPLANNER ---
Addendum entered by Adela Laws 05/26/23 09:34: pension manager received the following message from the ortho clinic regarding follow up appointment: attempt made to contact patient - left vm on 1st number, other number just rings and rings - and mailed letter to call clinic to schedule w/ madison chen next available Original Note: pension manager had message to schedule a follow up appointment for patient with ortho. pension manager sent patients information to the front office staff at ortho. Patients information will be printed and reviewed. Clinic will call patient with appointment information.
[2023-05-23 10:51] VITALS: BP 186/85; PULSE 74; RESP 16; O2SAT 96
== END 2023-05-23 10:52 | disposition home or self-care (01) ==
PROVIDERS: Emergency Provider Family Medicine; PCP Internal Medicine
DX: M75.101 Unspecified rotator cuff tear or rupture of right shoulder, not specified as traumatic (principal); I10 Essential (primary) hypertension; Z79.82 Long term (current) use of aspirin; Z87.891 Personal history of nicotine dependence
CPT/HCPCS: 73030; 96374; 96375; 99284; J0360; J1885

== ENCOUNTER → 2023-09-07 13:43 | Outpatient (BNVA) | payer MEDICARE, SELFPAY | PROVIDERS: PCP Internal Medicine; Visit Provider Internal Medicine Cardiovascular Disease | DX: I10 Essential (primary) hypertension (principal); G47.33 Obstructive sleep apnea (adult) (pediatric); E66.01 Morbid (severe) obesity due to excess calories; Z68.41 Body mass index [BMI] 40.0-44.9, adult; J45.909 Unspecified asthma, uncomplicated; Z87.891 Personal history of nicotine dependence | CPT/HCPCS: 99214 ==

== ENCOUNTER 2024-02-13 09:45 | Outpatient (CLI) | payer MEDICARE, SELFPAY ==
--- NOTE | 2024-02-13 09:52 | MM_ITS ---
WS: [id number] VIEWS: MLO and CC views both breasts. 3D digital tomosynthesis is also included in this exam. Comparison made with prior exam of 01/10/2007, 01/20/2009, 02/26/2009, 02/04/2014, 06/27/2022. 02/06/2023.. Findings: There was no sign of mass, architectural distortion or suspicious calcification in either breast. Sta ble appearing nodular densities in both breasts. There are scattered areas of fibroglandular density. Impression: MM/[place] [id number] BI-RADS: 2-Benign finding. FOLLOW-UP: 1 Year Follow-up This mammogram was also analyzed by the Computer Aided Detection System R2 Imag e Surface Supervisor.
== END 2024-02-13 09:46 | disposition home or self-care (01) ==
LOC: RAD 09:46
PROVIDERS: PCP Internal Medicine; Visit Provider Internal Medicine
DX: Z12.31 Encounter for screening mammogram for malignant neoplasm of breast (principal)
CPT/HCPCS: 77063; 77067

== ENCOUNTER → 2024-06-06 14:02 | Outpatient (BNVA) | payer MEDICARE, SELFPAY | PROVIDERS: PCP Internal Medicine; Visit Provider Internal Medicine | DX: I10 Essential (primary) hypertension (principal); G47.33 Obstructive sleep apnea (adult) (pediatric); E66.01 Morbid (severe) obesity due to excess calories; Z68.41 Body mass index [BMI] 40.0-44.9, adult; J45.909 Unspecified asthma, uncomplicated; Z87.891 Personal history of nicotine dependence | CPT/HCPCS: 99214 ==

== ENCOUNTER → 2024-10-24 10:52 | Outpatient (BNVA) | payer MEDICARE, SELFPAY | PROVIDERS: PCP Internal Medicine; Referring Provider Internal Medicine; Visit Provider Psychiatry & Neurology Neurology | DX: M79.601 Pain in right arm (principal); R20.0 Anesthesia of skin; R29.898 Other symptoms and signs involving the musculoskeletal system | CPT/HCPCS: 95911 ==

== ENCOUNTER → 2024-12-16 08:32 | Outpatient (BNVA) | payer MEDICARE, SELFPAY | PROVIDERS: PCP Internal Medicine; Visit Provider Specialist | DX: G56.03 Carpal tunnel syndrome, bilateral upper limbs (principal); Z01.818 Encounter for other preprocedural examination | CPT/HCPCS: 36415; 73130; 80053; 81001; 85025; 93005; 99205 ==

== ENCOUNTER 2024-12-17 05:39 | Day surgery (SDC) | payer MEDICARE, SELFPAY ==
[2024-12-17] VITALS (11 sets, daily range): BP systolic 114–239; BP diastolic 63–89; PULSE 55–77; RESP 14–19; TEMP 36.4–37; O2SAT 91–97; BMI 43.9
[2024-12-17] MEDS: gabapentin 300 mg Capsule PO (06:06)
[2024-12-17] MEDS: sodium chloride 0.9% 1,000 ML 30 ML IV (06:13)
[2024-12-17] MEDS: acetaminophen 1,000 MG/100 ML PIGGYBACK 400 MG IV (06:16)
--- NOTE | 2024-12-17 06:36 | ANES.PREANE2 ---
Pre-Anesthetic Assessment Height/Weight: Height 1.57 m Weight 108.862 kg Temp Pulse Resp BP Pulse Ox O2 Del Method 98.6 F 72 16 214/89 96 Room Air 12/17/24 06:01 12/17/24 06:10 12/17/24 06:10 12/17/24 06:10 12/17/24 06:10 12/17/24 06:10 Operation Date: 12/17/24 07:00 Proposed Procedures p Carpal Tunnel Release(Right) - Lyn Junior MD Familial anesthetic complications: None Was Beta Codie taken within 24 hours: N/A Was Clonidine taken within 24 hours: N/A Last intake: Intake Last Liquid Date 12/17/24 Last Liquid Time 00:00 Last Solid Date 12/16/24 Last Solid Time 22:00 Social No alcohol and No tobacco Exam alert, oriented x 3, clear to auscultation bilaterally and regular rate & rhythm Airway Mallampati: Class III Dentition: other (very poor teeth, many missing, discolored, decay - patient educated on elevated risk of dental damage) Pulmonary Asthma and Sleep Apnea Metabolic Morbid Obesity Anesthetic Plan ASA status: 3 Anesthesia: General Risk of > 500 ml blood loss (7ml/kg in children): No Medications/Allergies Home Medications Medication Instructions Recorded Confirmed Last Taken Type aspirin 81 mg tablet,delayed 325 mg PO DAILY 11/23/21 12/16/24 12/15/24 History release clonidine HCl 0.1 mg tablet 0.1 mg PO BID PRN Blood Pressure 06/28/22 12/17/24 12/17/24 06:05 Rx #60 tabs magnesium 200 mg tablet 200 mg PO DAILY 12/13/22 12/16/24 12/16/24 History diltiazem HCl 180 mg 180 mg PO BID #180 caps 01/17/24 12/17/24 12/17/24 Rx capsule,extended release 24 hr, controlled metoprolol succinate 25 mg 25 mg PO DAILY #90 tabs 05/24/24 12/17/24 12/17/24 Rx tablet,extended release 24 hr Allergies Allergy/AdvReac Type Severity Reaction Status Date / Time Sulfa (Sulfonamide Allergy Intermediate ALGY-Hives Verified 12/16/24 12:05 Antibiotics) canola oil Allergy Unknown ALGY-Difficulty Verified 12/16/24 12:05 Breathing egg Allergy Unknown unk Verified 12/16/24 12:05 ibuprofen Allergy ADR-Vomitin Verified 12/17/24 06:19 g losartan Allergy Unconscious Verified 12/16/24 12:05 hydrochlorothiazide AdvReac Unknown Unknown Verified 12/16/24 12:05 Current Medications Generic Name Dose Route Start Last Admin Trade Name Freq PRN Reason Stop Dose Admin Sodium Chloride 1,000 mls @ 30 mls/hr 12/17/24 06:00 12/17/24 06:13 Sodium Chloride 0.9% IV 12/18/24 05:59 30 mls/hr .Q24H ARABELLA Administration PFSH Anesthesia Medical History Hypertension DANIEL (obstructive sleep apnea) Asthma Obesity Former smoker, stopped smoking many years ago Social History Smoking and tobacco/nicotine status: never used tobacco/nicotine Quit status (tobacco/nicotine): quit date established Second hand smoke exposure: No Data Anesthesia Cardiac Studies: Echocardiogram 12/14/21 Sestamibi Stress Test (Cardiology) 03/03/20
--- NOTE | 2024-12-17 07:10 | W.PM.OPSUD ---
Surgery/Procedure H&P Update DATE OF PROCEDURE: December 17, 2024 DATE H&P PERFORMED: 12/16/24 H&P UPDATE INFORMATION: I have reviewed H&P completed within last 30 days, I have examined patient prior to procedure, No changes to prior documentation and H&P is in [facility] EMR on date indicated PLANNED PROCEDURE: Operation Date: 12/17/24 07:00 Proposed Procedures p Carpal Tunnel Release(Right) - Lyn Junior MD Related Problem List Diagnoses (1) Carpal tunnel syndrome on right:
[2024-12-17] MEDS: ceFAZolin 2,000 mg SDV 2000 MG IVP (07:20)
[2024-12-17] MEDS: BUPivacaine 0.5% INJ 30 mL INJECTION (07:39)
--- NOTE | 2024-12-17 08:31 | PM.OP ---
Operative Report Date of procedure: December 17, 2024 Pre-op diagnosis: Right carpal tunnel syndrome Post-op diagnosis: Right carpal tunnel syndrome Post-op findings: Severe compression across the carpal canal Procedure done: Right Carpal Tunnel Release Implants: None Specimens removed/disposition: None Pathology: None Surgeon: Lyn Junior MD Business Services Officer: None Anesthesia: General (Per LMA, ASA 3) Estimated blood loss (mL): 2 Tourniquet time (min): 19 (At 250 mmHg) IV fluids (mL): 700 Urine output (mL): 0 (No Saini) Complications: None Findings: Significant compression across the carpal canal Condition: stable Disposition: PACU (Then discharged to home from same-day surgery) Brief History: This 74-year-old woman presented to my office yesterday with with nerve conduction study demonstrating severe carpal tunnel. Patient's pain was 2 of 10 at the time of the visit. She had symptoms that were consistent with carpal tunnel syndrome which have been ongoing for at least a year. Actually, the patient had bilateral carpal tunnel symptoms, but the right was worse and she wished to proceed with right carpal tunnel release. Procedure: The patient was brought to the operating theater. The patient was administered a general anesthetic per LMA, ASA 3, which she tolerated well. The tourniquet was elevated to 250 mmHg for a total tourniquet time of 19 minutes. The patient was also given Ancef 2 g preoperatively. The arm was then prepped and draped with DuraPrep in usual fashion with the arm draped free. A surgical pause was performed. At the time, the surgical pause, we confirmed the site and side of surgery. We also confirmed the patient's identity, appropriate and timely administration of preoperative antibiotics and preoperative surgical markings. An incision was then made along the thenar crease. The incision crossed the wrist joint in a curvilinear fashion. Dissection continued through skin and soft tissues using a scalpel. The palmaris longus was identified along with the transverse carpal ligament. Each of these was released carefully to avoid injury to the median nerve. We were able to dissect gently into the carpal canal which was noted to be quite tight with significant compression across the median nerve. The nerve was visualized and was an hourglass shape. The canal was subsequently palpated to assure there was no bony encroachment upon the canal. There was a quite thickened fibrous tissue within the canal, and this was opened longitudinally as well. The canal was then palpated distally and proximally to assure that my small finger was passed easily without impingement. Finding this to be so, attention was directed to closure. The wound was irrigated with ropivacaine plain. It was then closed with 3-0 nylon in an interrupted mattress fashion. Sterile dressing was then placed consisting of Dermabond, OpSite, fluffed fluffs, sterile soft roll, and an Christian wrap. The tourniquet was released after 19 minutes. There were no complications. There were no specimens. The procedure was well tolerated. Plan is the patient will be discharged home. Related Problem List Diagnoses (1) Carpal tunnel syndrome on right:
[2024-12-17] MEDS: ondansetron 2 mg/ML SDV 2 mL 4 MG IVP (09:17)
[2024-12-17] MEDS: metoclopramide 5 mg/mL SDV 2 mL 10 MG IVP (09:32)
--- NOTE | 2024-12-17 10:05 | ANE.PACU2 ---
Inpatient post-anesthesia follow up: Airway intact: Yes Vital signs: Temperature 98 F Pulse Rate 55 Respiratory Rate 18 Blood Pressure 144/74 Pulse Oximetry 95 Oxygen Delivery Me thod Room Air Oxygen Flow Rate Fraction of Inspir ed Oxygen Hydration adequate: Yes Nausea and vomiting: No Pain level: 1 Mental status: Baseline
== END 2024-12-17 10:00 | disposition home or self-care (01) ==
PROVIDERS: PCP Family Medicine; Visit Provider Specialist
PROC: (CPT 64721; principal; 2024-12-17 07:00)
DX: G56.01 Carpal tunnel syndrome, right upper limb (principal); K08.409 Partial loss of teeth, unspecified cause, unspecified class; K02.9 Dental caries, unspecified; J45.909 Unspecified asthma, uncomplicated; E66.01 Morbid (severe) obesity due to excess calories; Z79.899 Other long term (current) drug therapy; G47.33 Obstructive sleep apnea (adult) (pediatric); I10 Essential (primary) hypertension; Z79.82 Long term (current) use of aspirin; Z88.2 Allergy status to sulfonamides; Z88.8 Allergy status to other drugs, medicaments and biological substances; Z91.012 Allergy to eggs; Z91.018 Allergy to other foods; Z87.891 Personal history of nicotine dependence; Z68.42 Body mass index [BMI] 45.0-49.9, adult
CPT/HCPCS: 64721; J0131; J0690; J1100; J2405; J2704; J2765; J3010; J3490; J7030

== ENCOUNTER → 2024-12-30 09:57 | Outpatient (BNVA) | payer MEDICARE, SELFPAY | PROVIDERS: PCP Family Medicine; Visit Provider Specialist | DX: G56.01 Carpal tunnel syndrome, right upper limb (principal) | CPT/HCPCS: 99024 ==

== ENCOUNTER 2025-02-07 08:15 | Emergency (ER) | payer MEDICARE, SELFPAY ==
[2025-02-07 08:17] VITALS: BP 182/87; PULSE 99; RESP 16; TEMP 36.6; O2SAT 97; BMI 40.2
--- NOTE | 2025-02-07 08:46 | PC.PHAR ---
Pt states she took her morning medications but threw up shortly after. When her daughter brings her purse, she wants to go ahead and take them again.
[2025-02-07] MEDS: sodium chloride 0.9% 1,000 ML 999 ML IV (08:48)
[2025-02-07] MEDS: ondansetron 2 mg/ML SDV 2 mL 4 MG IVP ×2 (08:49→13:49)
--- NOTE | 2025-02-07 08:50 | ED_ITS ---
HPI - Abdominal Pain 2 General: Chief Complaint: Abdominal Pain Stated Complaint: epigastric pain n/v/d Time Seen by Provider: 02/07/25 08:17 History of Present Illness: 74-year-old female presents emergency ro om with complaint of epigastric pain that began around 3:00 this morning. She had brief episode of chest pain this all occurred while at rest. She still has a nausea vague abdominal discomfort denies dysuria urgency or frequency no hematochezia melena hematemesis coffee- ground emesis some myalgias. When she did have a chest discomfort radiated a bit into her back. No known history of heart disease. Associated Symptoms: Denies chills, dysuria and fever(s) Related Data Home Medications ?Medication ?Instructions ?Recorded ?Confirmed aspirin 81 mg tablet,delayed 81 mg PO DAILY 11/23/21 0 02/07/25 release magnesium 200 mg tablet 200 mg PO DAILY 12/13/22 Previous Rx's ?Medication ?Instructions ?Recorded clonidine HCl 0.1 mg tablet 0.1 mg PO BID PRN Blood Pr essure 06/28/22 #60 tabs metoprolol succinate 25 mg 25 mg PO DAILY #90 tabs 04/12 tablet,extended release 24 hr diltiazem HCl 180 mg 180 mg PO BID #180 caps 11/22 capsule,extended release 24 hr, controlled pantoprazole 40 mg tablet,delayed 40 mg PO BID 14 days #44 tabs 02/07/25 release Allergies Allergy/AdvReac Type Severity Reaction Status Date / Time Sulfa (Sulfonamide Allergy Intermediate ALGY-Hives Verified 12/30/24 10:27 Antibiotics) canola oil Allergy Unknown ALGY-Difficulty Verified 12/30/24 10:27 Breathing egg Allergy Unknown unk Verified 12/30/24 10:27 ibuprofen Allergy ADR-Vomitin Verified 12/30/24 10:27 g losartan Allergy Unconscious Verified 12/30/24 10:27 hydrochlorothiazide AdvReac Unknown Unknown Verified 12/30/24 10:27 Review of Systems 2 Const: Denies: fever(s) or chills Card: Denies: chest pain Resp: Denies: dyspnea GI: Reports: abdominal pain : Denies: dysuria, urinary frequency or urinary urgency Musc: Denies: neck pain or back pain Skin/Breast: Denies: rash PFSH ED 2 PFSH: Medical History Hypertension DANIEL (obstructive sleep apnea) Asthma Obesity Former smoker, stopped smoking many years ago Social History Smoking and tobacco/nicotine status: never used tobacco/nicotine Quit status (tobacco/nicotine): quit date established Second hand smoke exposure: No Physical Exam 2 Const: GENERAL APPEARANCE: cooperative ORIENTATION/CONSCIOUSNESS: Yes awake, Yes oriented to person, Yes oriented to place and Yes oriented to time HENMT: COMMON NORMALS: normocephalic, atraumatic and hearing grossly normal bilaterally HEAD & SCALP: normocephalic and atraumatic Resp: COMMON NORMALS: normal respiratory effort, No retractions, No use of accessory muscles and clear to auscultation bilaterally AUSCULTATION: clear to auscultation bilaterally Cardio: COMMON NORMALS: regular rate, regular rhythm and No murmurs present (Cardio) RATE: regular rate RHYTHM: regular rhythm GI: COMMON NORMALS: Soft to palpation and No hepatosplenomegaly present A USCULTATION: Yes normoactive bowel sounds PALPATION: Yes Soft to palpation, No Tenderness to palpation present (GI), No Guarding due to palpation present (GI) and Yes No hepatosplenomegaly present Extremity: COMMON NORMALS: normal to inspection, capillary refill normal, no clubbing, cyanosis or edema, no calf tenderness and no pedal edema Neuro: SENSORIUM/ORIENTATION: Yes oriented to person, Yes oriented to place and Yes oriented to time Skin: COMMON NORMALS: no rashes or lesions noted GENERAL SKIN EXAM: no rashes or lesions noted Course 2 Vital Signs: Vital signs: Vital Signs Temperature 97.9 F 02/07/25 08:17 Pulse Rate 17 L 02/07/25 13:57 Respiratory Rate 16 02/07/25 08:17 Blood Pressure 149/61 02/07/25 13:57 Pulse Oximetry 99 02/07/25 13:57 Oxygen Delivery Me thod Room Air 02/07/25 08:17 MDM - Abdominal Pain Medical Decision Making Cardiac enzymes negative. She does have elevated white count however her laboratory tests otherwise did not show any significant abnormalities kidney function is normal. There is very minimal elevation of alkaline phosphatase with the rest of her liver enzymes are normal urine does not show any signs of infection. Flu COVID and RSV were negative. Troponins were negative. EKGs did not show any acute changes. Based on her symptoms suspect some of this is gastroenteritis she is having abdominal pain and diarrhea prior to coming in as well as nausea and vomiting. Treat symptomatically. Have her follow-up with her primary care doctor also encouraged her on the pantoprazole. Lab Data 02/07/25 09:03 02/07/25 09:03 Labs/Radiology: Radiology Impressions Abdomen/Pelvis CT 02/07/25 09:26 Impression: Negative for acute abdominal or pelvic abnormality. Laboratory Results WBC 18.77 10^3/uL (3.29-11.43) H 02/07/25 09:03 RBC 4.51 10^6/uL (3.85-5.65) 02/07/25 09:03 Hgb 13.10 g/dL (11.27-16.99) 02/07/25 09:03 Hct 42.2 % (36-47) 02/07/25 09:03 MCV 93.6 fl (85-98) 02/07/25 09:03 MCH 29.0 pg (27-33) 02/07/25 09:03 MCHC 31.0 g/dL (30-55) 02/07/25 09:03 RDW 13.8 % (12.1-15.1) 02/07/25 09:03 Plt Count 326 10^3/cmm (157-399) 02/07/25 09:03 MPV 8.9 fL (7.4-10.4) 02/07/25 09:03 Neut % (Auto) 92.8 % 02/07/25 09:03 Lymph % (Auto) 2.1 % 02/07/25 09:03 [place] % (Auto) 4.1 % 02/07/25 09:03 Eos % (Auto) 0.4 % 02/07/25 09:03 Baso % (Auto) 0.2 % 02/07/25 09:03 Neut # (Auto) 17.43 10^3/uL (1.8-7.7) H 02/07/25 09:03 Lymph # (Auto) 0.4 10^3/uL (0.8-4.8) L 02/07/25 09:03 [place] # (Auto) 0.8 10^3/uL (0.2-0.9) 02/07/25 09:03 Eos # (Auto) 0.1 10^3/uL (0.0-0.8) 02/07/25 09:03 Baso # (Auto) 0.0 10^3/uL (0.0-0.1) 02/07/25 09:03 Nucleated RBC % (auto) 0 % 02/07/25 09:03 Nucleated RBCs # 0.0 /100WBC 02/07/25 09:03 Sodium 138 mmol/L (136-145) 02/07/25 09:03 Potassium 4.3 mmol/L (3.5-5.1) 02/07/25 09:03 Chloride 103 mmol/L (98-107) 02/07/25 09:03 Carbon Dioxide 24 mmol/L (22-29) 02/07/25 09:03 Anion Gap 15.3 (5-19) 02/07/25 09:03 BUN 15 mg/dL (8-23) 02/07/25 09:03 Creatinine 0.6 mg/dL (0.5-0.9) 02/07/25 09:03 GFR Calculation Not Reportable 02/07/25 09:03 Glucose 152 mg/dL (65-115) H 02/07/25 09:03 Calculated Osmolality 290 mOsm/kg (285-295) 02/07/25 09:03 Calcium 8.1 mg/dL (8.5-10.5) L 02/07/25 09:03 Total Bilirubin 0.4 mg/dL (0.15-1.2) 02/07/25 09:03 AST 14 U/L (0-32) 02/07/25 09:03 ALT 14 U/L (0-33) 02/07/25 09:03 Alkaline Phosphatase 110 U/L (35-105) H 02/07/25 09:03 Troponin T Baseline 7 ng/L (0-10) 02/07/25 09:03 Troponin T 120 Minute 7.60 ng/L (0-10) 02/07/25 11:28 Delta Troponin T 0.60 ABS# (0-10) 02/07/25 11:28 Total Protein 6.8 g/dL (6.6-8.7) 02/07/25 09:03 Albumin 3.9 g/dL (3.5-5.2) 02/07/25 09:03 Globulin 2.9 g/dL (1.3-4.6) 02/07/25 09:03 Lipase 15 U/L (13-60) 02/07/25 09:03 Urine Color Yellow (Yellow) 02/07/25 08:19 Urine Appearance Clear (CLEAR) 02/07/25 08:19 Urine pH 5.5 (5-7) 02/07/25 08:19 Ur Specific [place] 1.020 (1.005-1.030) 02/07/25 08:19 Urine Protein 1+ (Negative) A 02/07/25 08:19 Urine Glucose (UA) Negative (Normal) 02/07/25 08:19 Urine Ketones Negative (Negative) 02/07/25 08:19 Urine Blood Negative (Negative) 02/07/25 08:19 Urine Nitrate Negative (Negative) 02/07/25 08:19 Urine Bilirubin Negative (Negative) 02/07/25 08:19 Urine Urobilinogen 0.2 mg/dL (Negative) 02/07/25 08:19 Ur Leukocyte Esterase Negative (Negative) 02/07/25 08:19 Urine RBC 0-2 /hpf (0-2) 02/07/25 08:19 Urine WBC 0-5 /hpf (0-5) 02/07/25 08:19 Ur Squamous Epith Cells 0-5 /hpf (0-5) 02/07/25 08:19 Amorphous Sediment Not Reportable 02/07/25 08:19 Urine Bacteria None seen /hpf (NONE) 02/07/25 08:19 Hyaline Casts 0.81 /lpf 02/07/25 08:19 Influenza A (PCR) Negative (Negative) 02/07/25 08:56 Influenza Type B (PCR) Negative (Negative) 02/07/25 08:56 RSV (PCR) Negative (Negative) 02/07/25 08:56 SARS-CoV-2 (PCR) Negative (Negative) 02/07/25 08:56 All radiology interpretation(s) finalized by discharge Discharge Plan Discharge Patient Disposition: Home Clinical Impression: Chest pain due to GERD Condition: Stable Prescriptions: New pantoprazole 40 mg tablet,delayed release (DR/EC) 40 mg PO BID 14 Days Qty: 44 0RF Rx Instructions: 1 tablet twice a day for 14 days then once daily. No Action aspirin 81 mg tablet,delayed release (DR/EC) 81 mg PO DAILY clonidine HCl 0.1 mg tablet 0.1 mg PO BID PRN (Reason: Blood Pressure) Qty: 60 2RF Rx Instructions: Use if BP > 160/90 mm Hg magnesium 200 mg tablet 200 mg PO DAILY metoprolol succinate 25 mg tablet extended release 24 hr 25 mg PO DAILY Qty: 90 2RF Rx Instructions: may cut in half if BP is low or dizziness diltiazem HCl 180 mg capsule,ext.rel 24h degradable 180 mg PO BID Qty: 180 3RF Discharge Orders: Discharge ED (Routine); Ordered 02/07/25 Ordered By: Luis Daniel Schuster Referrals: Gee Cantor MD [Primary Care Provider] - Discharge Diet: As Directed Discharge Activity: Increase activity as tolerated Patient Instructions: Diet for Stomach Ulcers and Gastritis (ED), GERD (Gastroesophageal Reflux Disease) (ED), Opioid Safety, Pain Management Activity Restrictions/Additional Instructions: Thank you for choosing [facility] for your healthcare needs today. It is very important that you follow up as instructed or that you return to the Emergency Department should you have concerns or if your condition changes or worsens in any way. You are seen in the emergency room with complaint of chest pain and abdominal pain. Cardiac enzymes and EKG did not show any acute changes. Suspect this is more related to your reflux from your stomach. Recommend starting pantoprazole 40 mg twice a day for 2 weeks then once daily after that follow-up with primary care doctor Print Language: Urdu Coding Level of Care Code ED Medical Transcriptionist for Jennifer Esquivel
[2025-02-07 09:08] LABS: Basophils % 0.2 %; Eosinophils # 0.1 10^3/uL (0.0-0.8); Eosinophils % 0.4 %; Hematocrit 42.2 % (36-47); Lymphocytes # 0.4 10^3/uL (0.8-4.8); Lymphocytes % 2.1 %; Mean Corpuscular Volume 93.6 fl (85-98); Mean Platelet Volume 8.9 fL (7.4-10.4); Monocytes # 0.8 10^3/uL (0.2-0.9); Monocytes % 4.1 %; Neutrophils # 17.43 10^3/uL (1.8-7.7); Neutrophils % 92.8 %; Nucleated Red Blood Cells % 0 %; Platelet Count 326 10^3/cmm (157-399); Red Blood Count 4.51 10^6/uL (3.85-5.65); Red Cell Distribution Width 13.8 % (12.1-15.1); White Blood Count 18.77 10^3/uL (3.29-11.43)
--- NOTE | 2025-02-07 09:08 | ECG_ITS ---
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 Measurements Intervals [place] Rate: 83 P: 67 MO: 209 QRS: -4 QRSD: 99 T: 70 QT: 355 QTc: 418 Interpretive Statements SINUS RHYTHM Compared to ECG 12/16/2024 11:52:43 First degree AV block no longer present Electronically Signed On 02-08-2025 07:42:03 CDT by Javier Dickens M.D. [id number]
[2025-02-07 09:09] LABS: Bilirubin Urine Negative (Negative); Blood Urine Negative (Negative); Glucose Urine UA Negative (Normal); Ketones Urine Negative (Negative); Leukocyte Esterase Urine Negative (Negative); Nitrate Urine Negative (Negative); Protein Urine 1+ (Negative); Urine Appearance Clear (CLEAR); Urine Color Yellow (Yellow); Urobilinogen Urine 0.2 mg/dL (Negative); pH Urine 5.5 (5-7)
[2025-02-07 09:11] LABS: Add Urine Microscopic? YES; Bacteria Urine None Seen /hpf; Hyaline Casts Urine 0.81 /lpf; RBC Urine 0-2 /hpf (0-2); Squamous Epithelial Cell Urine 0-5 /hpf (0-5); WBC Urine 0-5 /hpf (0-5)
--- NOTE | 2025-02-07 09:26 | CT_ITS ---
WS: [id number] CT scan of the abdomen and pelvis without Oral and IV contrast. Additional two- dimensional coronal and sagittal reconstruction was performed. 02/07/2025 Clinical Data: Abdominal pain Comparison: None. DLP: 1179.[address] scans at [facility] use at least one of these dose optimization techniques: automated exposure control; mA and/or kV adjustment per patient size (includes targeted exams where dose is matched to clinical indication); or iterative reconstruction. Findings: The lower lungs show no nodules, masses or effusions. The liver, gallbladder, spleen and pancreas are normal. There is a left adrenal adenoma measuring 3.0 cm. The right kidney shows a small cortical cyst. No masses, hydronephrosis or renal calculi are seen. The left kidney is normal. The abdominal aorta is normal in size with minimal calcification in the wall. No appendicitis or diverticulitis is seen. The stomach, small bowel and colon are not remarkable. No obstruction is seen. No abscess, adenopathy, ascites or retroperitoneal mass is present. The bladder is unremarkable. No inguinal hernia is seen. The pelvis and hips are normal. 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 There is a 6.5 cm fat-containing ventral hernia. CT/CT abdomen pelvis wo con [id number] Impression: Negative for acute abdominal or pelvic abnormality.
[2025-02-07 09:28] LABS: Troponin(5th) Baseline 7 ng/L (0-10)
[2025-02-07 09:29] LABS: Alanine Aminotransferase 14 U/L (0-33); Albumin Level 3.9 g/dL (3.5-5.2); Alkaline Phosphatase 110 U/L (35-105); Anion Gap 15.3 (5-19); Aspartate Amino Transferase 14 U/L (0-32); Blood Urea Nitrogen 15 mg/dL (8-23); Calcium 8.1 mg/dL (8.5-10.5); Carbon Dioxide 24 mmol/L (22-29); Chloride 103 mmol/L (98-107); Globulin 2.9 g/dL (1.3-4.6); Glucose 152 mg/dL (65-115); Lipase 15 U/L (13-60); Osmolality Calculated 290 mOsm/kg (285-295); Potassium 4.3 mmol/L (3.5-5.1); Sodium 138 mmol/L (136-145); Total Bilirubin 0.4 mg/dL (0.15-1.2); Total Protein 6.8 g/dL (6.6-8.7)
[2025-02-07 09:41] LABS: Influenza A NEGATIVE (Negative); Influenza B NEGATIVE (Negative); Respiratory Syncytial Virus Ce NEGATIVE (Negative); SARS-CoV-2 PCR NEGATIVE (Negative)
[2025-02-07] MEDS: lidocaine 2% viscous 15 ML, aluminum-mag hydrox-simethicon 30 ML, sucralfate oral liq 1 GM PO (09:58)
--- NOTE | 2025-02-07 10:57 | ECG_ITS ---
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 Measurements Intervals [place] Rate: 89 P: 24 MT: 177 QRS: -5 QRSD: 97 T: 66 QT: 345 QTc: 421 Interpretive Statements SINUS RHYTHM LOW QRS VOLTAGE IN PRECORDIAL LEADS [QRS DEFLECTION < 1.0 mV IN CHEST LEADS] Compared to ECG 02/07/2025 09:08:57 Low QRS voltage now present Electronically Signed On 02-08-2025 07:47:15 CDT by Javier Dickens M.D. [id number] [id number]
[2025-02-07] MEDS: loperamide 2 mg Capsule 4 MG PO (13:48)
[2025-02-07 13:57] VITALS: BP 149/61; PULSE 17; O2SAT 99
== END 2025-02-07 14:00 | disposition home or self-care (01) ==
PROVIDERS: Emergency Provider Family Medicine; PCP Family Medicine
DX: K21.9 Gastro-esophageal reflux disease without esophagitis (principal); R07.9 Chest pain, unspecified; Z11.52 Encounter for screening for COVID-19; Z79.82 Long term (current) use of aspirin; I10 Essential (primary) hypertension; Z87.891 Personal history of nicotine dependence
CPT/HCPCS: 36415; 74176; 80053; 81001; 83690; 84484; 85025; 87637; 93005; 96361; 96374; 96376; 99285; J2405; J7030; J9999

== ENCOUNTER 2025-04-08 11:02 | Outpatient (CLI) | payer MEDICARE, SELFPAY ==
--- NOTE | 2025-04-08 11:04 | MM_ITS ---
WS: [id number] BILATERAL 3D TOMOSYNTHESIS DIGITAL SCREENING MAMMOGRAPHY WITH CAD CLINICAL INFORMATION: SCREENING HISTORY: Screening mammogram. No current complaints. COMPARISON: 2023 TECHNIQUE: Bilateral CC and MLO views. FINDINGS: Scattered fibroglandular densities bilaterally. No suspicious focal mass, asymmetry, calcifications, or architectural distortion. No evidence of malignancy. Vascular calcifications. MM/MM scr tomosynthesis [id number] IMPRESSION: DENSITY: There are scattered areas of fibroglandular density. BI-RADS: 2 - Benign. FOLLOW UP: 1 Year Follow-up Recommend return to annual screening mammography.
== END 2025-04-08 11:03 | disposition home or self-care (01) ==
LOC: RAD 11:04
PROVIDERS: PCP Family Medicine; Visit Provider Family Medicine
DX: Z12.31 Encounter for screening mammogram for malignant neoplasm of breast (principal); R92.323 Mammographic fibroglandular density, bilateral breasts; R92.1 Mammographic calcification found on diagnostic imaging of breast
CPT/HCPCS: 77063; 77067

== ENCOUNTER 2025-05-20 14:00 | Outpatient (CLI) | payer MEDICARE, SELFPAY ==
--- NOTE | 2025-05-20 14:09 | USCV_ITS ---
Lakeshia Giles Age: 75 Gender: F : 1950 Exam Date: 05/20/2025 14:26 Ordering Phys: Gee Cantor MD Technologist: GIOVANNA Exam Location: [facility] Indication: SOB BP: 164 / 76 HR: 68 Rhythm: Sinus Technical Quality: Adequate MEASUREMENTS (Male / Female) Normal Values 2D ECHO LV Diastolic Diameter PLAX 5.2 cm 4.2 - 5.9 / 3.9 - 5.3 cm IVS Diastolic Thickness 1.5 cm 0.6 - 1.0 / 0.6 - 0.9 cm IVS Systolic Thickness 2.0 cm LVPW Diastolic Thickness 1.6 cm 0.6 - 1.0 / 0.6 - 0.9 cm LVPW Systolic Thickness 2.1 cm LVOT Diameter 2.0 cm LV Ejection Fraction 2D Teich 60.6 % LV Ejection Fraction MOD 4C 52.6 % LV Ejection Fraction MOD 2C 62.9 % LV Ejection Fraction 2C AL 63.5 % LA Diameter 4.5 cm RA Systolic Volume 4C AL 37.7 ml RA Systolic Volume 4C MOD 36.7 ml LA Sys Volume AL 44.3 cm cubed LA Sys Volume Index AL 19.4 cm cubed/m squared Aorta at Sinotubular Diameter 3.0 cm M-MODE LA Ao Ratio MM 1.4 AV Cusp Separation MM 1.9 cm DOPPLER AV Peak Velocity 151.0 cm/s LVOT Peak Velocity 124.0 cm/s AV Area Cont Eq vti 2.8 cm squared AV Area Cont Eq pk 2.7 cm squared MV Peak Velocity 148.0 cm/s MV Area PHT 3.9 cm squared Mitral E to A Ratio 0.7 TR Peak Velocity 98.0 cm/s TR Peak Gradient 3.8 mmHg TV Peak E Velocity 79.0 cm/s PV Peak Velocity 117.0 cm/s FINDINGS Left Ventricle Normal left ventricular size, systolic function and wall thickness, with no regional wall motion abnormalities. Left ventricular ejection fraction is estimated at 60 %. Grade I/IV diastolic dysfunction (abnormal relaxation filling pattern), normal to mildly elevated filling pressures. Right Ventricle The right ventricle is normal in size and function. Right Atrium The right atrium is normal in size. Left Atrium Moderately increased left atrial size. Mitral Valve Moderately thickened mitral valve. No mitral valve stenosis. Moderate mitral annular calcification. Aortic Valve Moderate aortic valve calcification. Mild aortic valve stenosis, mean gradient 3.9 mmHg, AMBROSIO 2.8 cm squared. Trace aortic valve regurgitation. Tricuspid Valve Structurally normal tricuspid valve without significant stenosis or regurgitation. Pulmonary artery systolic pressure is normal. Pulmonic Valve Structurally normal pulmonic valve without significant stenosis. There is no pulmonic regurgitation. Pericardium Normal pericardium without effusion. Aorta Normal ascending aorta dimension. IVC The inferior vena cava appears normal. CONCLUSIONS Normal left ventricular size, systolic function and wall thickness, with no regional wall motion abnormalities. Left ventricular ejection fraction is estimated at 60 %. Grade I/IV diastolic dysfunction (abnormal relaxation filling pattern), normal to mildly elevated filling pressures. Moderately thickened mitral valve. No mitral valve stenosis. Moderate mitral annular calcification. Moderately increased left atrial size. Moderate aortic valve calcification. Mild aortic valve stenosis, mean gradient 3.9 mmHg, AMBROSIO 2.8 cm squared. Trace aortic valve regurgitation. There is no pericardial effusion. Right atrial pressure is around 5 mm of mercury. Pee Evans MD (Electronically Signed) Final Date: 04 June 2025 20:55 S
== END 2025-05-20 14:01 | disposition home or self-care (01) ==
LOC: RAD 14:01
PROVIDERS: PCP Family Medicine; Visit Provider Family Medicine
DX: R06.09 Other forms of dyspnea (principal); R93.1 Abnormal findings on diagnostic imaging of heart and coronary circulation; I51.7 Cardiomegaly; I34.81 Nonrheumatic mitral (valve) annulus calcification; I35.8 Other nonrheumatic aortic valve disorders; I35.0 Nonrheumatic aortic (valve) stenosis
CPT/HCPCS: 93306

== ENCOUNTER → 2025-06-05 14:44 | Outpatient (BNVA) | payer MEDICARE, SELFPAY | PROVIDERS: PCP Family Medicine; Visit Provider Internal Medicine | DX: I10 Essential (primary) hypertension (principal); G47.33 Obstructive sleep apnea (adult) (pediatric); E66.01 Morbid (severe) obesity due to excess calories; Z68.41 Body mass index [BMI] 40.0-44.9, adult; J45.909 Unspecified asthma, uncomplicated | CPT/HCPCS: 99213 ==